=== PATIENT | male | born 1955 | race Caucasian/White ===

== ENCOUNTER 2019-01-21 00:44 | Emergency (ER) | payer BC, OTHER ==
[~2019-01-21] VITALS: Ht 188 cm; Wt 90.3 kg
[2019-01-21 01:41] LABS: ABSOLUTE EOSINOPHILS 0.4 thou/uL (0.0-0.7); ABSOLUTE LYMPHOCYTES 1.5 thou/uL (0.8-5.3); ABSOLUTE MONOCYTES 0.8 thou/uL (0.0-1.2); ABSOLUTE NEUTROPHILS 3.5 thou/uL (1.6-8.1); BASOPHILS 0.5 %; EOSINOPHILS 7.1 %; HEMATOCRIT 42.3 % (42.0-52.0); HEMOGLOBIN 14.9 gm/dL (14.0-18.0); LYMPHOCYTES 23.6 %; MCH 31.3 pg (26.0-34.0); MCHC 35.3 g/dL (28.0-37.0); MCV 88.7 fL (80.0-100.0); MONOCYTES 12.9 %; NUCLEATED RBCS 0 /100WBC; PLATELET COUNT* 279 thou/uL (150-400); POLYS 55.9 %; RBC 4.78 mil/uL (4.50-6.00); WBC 6.3 thou/uL (4.0-11.0)
[2019-01-21 02:21] LABS: PROTIME 10.6 Seconds (9.20-11.50)
[2019-01-21 02:33] LABS: ALKALINE PHOSPHATASE 86 U/L (46-116); ANION GAP 6 mmol/L (7-16); BUN 20 mg/dL (7-18); CALCIUM 9.2 mg/dL (8.5-10.1); CHLORIDE 99 mmol/L (98-107); CO2 29 mmol/L (21-32); CREATININE 1.2 mg/dL (0.6-1.3); GLUCOSE 106 mg/dL (70-99); NT-PRO BRAIN NAT PEPTIDE 39 pg/mL (<300); POTASSIUM 3.9 mmol/L (3.5-5.1); SGOT 22 U/L (15-37); SGPT 30 U/L (30-65); SODIUM 134 mmol/L (136-145); TOTAL BILIRUBIN 1.7 mg/dL (<0.1-1.0); TOTAL PROTEIN 7.5 g/dL (6.4-8.2); TROPONIN-I LEVEL <0.06 ng/mL (<0.06)
[2019-01-21 03:21] VITALS: BP 160/86
--- NOTE | 2019-01-21 14:10 | EKG ---
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 : 1955 Requested By: Andree Pierce Order Number: [id number] MD: Dante Morales Measurements Intervals [place] Rate: 63 P: 63 TN: 245 QRS: -6 QRSD: 98 T: 66 QT: 425 QTc: 436 Interpretive Statements Sinus rhythm Prolonged TN interval Consider left atrial enlargement Minimal ST elevation, inferior leads No previous ECG available for comparison Electronically Signed On 01-21-2019 14:09:59 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
== END 2019-01-21 03:30 | disposition home or self-care (01) ==
LOC: M.ERS 00:44
PROVIDERS: Emergency Medicine
DX: I10 Essential (primary) hypertension (principal)

== ENCOUNTER → 2021-03-23 | Outpatient (CLI) | payer BC, OTHER ==
--- NOTE | 2021-03-23 14:18 | 2DMMODE ---
[place] [address] 2 D/M-MODE ECHOCARDIOGRAM Name: LYUDMILA LOPEZ Room: [facility]#: [id number] Admission: 03/23/21 Attend Phys: Leonides Coyle MD Discharge: Date of : 51 Date of Service: 03/23/21 1418 Report #: [id number] THIS REPORT FOR: cc: Leonides Coyle MD, Meng MD Blick, David R. MD [facility] ~ APPROVED REPORT Study performed: 03/23/2021 08:59:24 EXAM: Comprehensive 2D, Doppler, and color-flow Echocardiogram Patient Location: Out-Patient BSA: 2.13 HR: 78 bpm BP: 117/72 mmHg Other Information Study Quality: Good Indications Hypertension/HDD 2D Dimensions IVSd: 12.09 (7-11mm) LVOT Diam: 21.21 (18-24mm) LVDd: 41.23 mm PWd: 9.94 (7-11mm) Ascending Ao: 31.90 (22-36mm) LVDs: 28.71 (25-40mm) Aortic Root: 28.31 mm Volumes Left Atrial Volume (Systole) LA ESV Index: 21.00 mL/m2 Aortic Valve AoV Peak Bashir.: 1.08 m/s AO Peak Gr.: 4.63 mmHg LVOT Max P.27 mmHg AO Mean Gr.: 2.62 mmHg LVOT Mean P.80 mmHg LVOT Max V: 1.25 m/s AO V2 VTI: 22.79 cm LVOT Mean V: 0.76 m/s SARAHI (VTI): 3.82 cm2 LVOT V1 VTI: 24.62 cm Mitral Valve E/A Ratio: 0.83 [place] [address] 2 D/M-MODE ECHOCARDIOGRAM Name: LYUDMILA LOPEZ Room: [facility]#: [id number] Admission: 03/23/21 Attend Phys: Leonides Coyle MD Discharge: Date of : 51 Date of Service: 03/23/21 1418 Report #: [id number] MV Decel. Time: 300.43 ms MV E Max Bashir.: 0.47 m/s MV PHT: 87.13 ms MVA (PHT): 2.53 cm2 TDI E/Lateral E': 3.36 E/Medial E': 4.70 Medial E' Bashir.: 0.10 m/s Lateral E' Bashir.: 0.14 m/s Pulmonary Valve PV Peak Bashir.: 0.94 m/s PV Peak Gr.: 3.50 mmHg Tricuspid Valve RAP Estimate: 5.00 mmHg TR Peak Gr.: 22.37 mmHg RVSP: 27.37 mmHg PA Pressure: 27.37 mmHg Left Ventricle The left ventricle is normal size. There is normal LV segmental wall motion. There is normal left ventricular wall thickness. Left ventricular systolic function is normal. The left ventricular ejection fraction is within the normal range. LVEF is 55-60%. Grade I - abnormal relaxation pattern. Right Ventricle The right ventricle is normal size. The right ventricular systolic function is normal. Atria The left atrium size is normal. The right atrium size is normal. Aortic Valve The Aortic valve is sclerotic. No aortic regurgitation is present. There is no aortic valvular stenosis. Mitral Valve The mitral valve is normal in structure. Mild mitral regurgitation. No evidence of mitral valve stenosis. There is mild mitral valve prolapse. Tricuspid Valve The tricuspid valve is normal in structure. Mild tricuspid regurgitation. estimated pa pressure 30 [place] [address] 2 D/M-MODE ECHOCARDIOGRAM Name: YAELLYUDMILA Rip Room: [facility]#: [id number] Admission: 03/23/21 Attend Phys: Leonides Coyle MD Discharge: Date of : 51 Date of Service: 03/23/21 1418 Report #: [id number] Pulmonic Valve The pulmonary valve is normal in structure. Mild pulmonic regurgitation. Great Vessels The aortic root is normal in size. IVC is normal in size and collapses >50% with inspiration. Pericardium There is no pericardial effusion. <Conclusion> LVEF is 55-60%. The Aortic valve is sclerotic. Mild mitral regurgitation. <ELECTRONICALLY SIGNED> By: Daquan Donovan MD, [facility] 03/23/21 1418 141 1418 Daquan Donovan MD, FAC /INF
== END ==
LOC: M.CRD 08:53
PROVIDERS: ATTEND Internal Medicine
DX: I08.8 Other rheumatic multiple valve diseases (principal); I10 Essential (primary) hypertension; R01.1 Cardiac murmur, unspecified

== ENCOUNTER 2021-11-29 18:57 | Emergency (ER) | payer BC ==
[~2021-11-29] VITALS: Ht 185.4 cm; Wt 88.5 kg
[2021-11-29 19:10] VITALS: BP 124/88
[2021-11-29] MEDS ORDERED: LISINOPRIL10 MG PO (19:14)
[2021-11-29] MEDS ORDERED: PAXIL20 MG PO (19:14)
[2021-11-29 20:21] LABS: ABSOLUTE LYMPHOCYTES 0.6 thou/uL (0.8-5.3); ABSOLUTE MONOCYTES 1.1 thou/uL (0.0-1.2); ABSOLUTE NEUTROPHILS 6.1 thou/uL (1.6-8.1); BASOPHILS 0.3 %; EOSINOPHILS 0.2 %; HEMATOCRIT 39.8 % (42.0-52.0); HEMOGLOBIN 14.2 gm/dL (14.0-18.0); LYMPHOCYTES 7.2 %; MCH 32.3 pg (26.0-34.0); MCHC 35.7 g/dL (28.0-37.0); MCV 90.5 fL (80.0-100.0); MONOCYTES 13.8 %; MPV 6.7 fl. (7.2-11.1); NUCLEATED RBCS 0 /100WBC; PLATELET COUNT* 254 thou/uL (150-400); POLYS 78.5 %; RDW-CV 12.7 % (10.5-14.5); WBC 7.8 thou/uL (4.0-11.0)
[2021-11-29 20:25] LABS: INFLUENZA A ANTIGEN Negative (Negative); INFLUENZA B ANTIGEN Negative (Negative)
[2021-11-29 20:31] LABS: CALCIUM 8.4 mg/dL (8.5-10.1); CREATININE 1.2 mg/dL (0.6-1.3); POTASSIUM 4.4 mmol/L (3.5-5.1)
[2021-11-29] MEDS ORDERED: ZOFRAN ODT4 MG PO (20:33)
== END 2021-11-29 21:14 | disposition home or self-care (01) ==
LOC: M.ERS 18:57
PROVIDERS: Nurse Practitioner Family
DX: B34.9 Viral infection, unspecified (principal); Z20.822 Contact with and (suspected) exposure to COVID-19; I10 Essential (primary) hypertension; E87.1 Hypo-osmolality and hyponatremia; Z79.899 Other long term (current) drug therapy